=== PATIENT | male | born 1985 | race Caucasian/White ===

== ENCOUNTER 2023-09-29 10:39 | Day surgery (SDC) | payer BC ==
[2023-09-29] MEDS ORDERED: dexmedeTOMIDine HCl 200 MCG/2 ML SDV ONE (11:45)
[2023-09-29] MEDS ORDERED: Lidocaine 2% 5 ML SDV ONE (11:46)
[2023-09-29] MEDS ORDERED: Phenylephrine 1% 10 MG/ML SDV ONE (11:47)
[2023-09-29] MEDS ORDERED: Sodium Chloride 0.9% 100 ML ONE ×2 (11:47→11:58)
[2023-09-29] MEDS ORDERED: Propofol 200 MG/20 ML SDV ONE (11:50)
[2023-09-29] MEDS: Acetaminophen 325 MG Tab PO ONE (12:44)
[2023-09-29] MEDS ORDERED: Ondansetron 4 MG/2 ML SDV IVPUSH ONE (13:00)
== END 2023-09-29 13:10 | disposition home or self-care (01) ==
LOC: JD.SDS 10:39
PROVIDERS: ATTEND Surgery
DX: K52.9 Noninfective gastroenteritis and colitis, unspecified (principal); F17.210 Nicotine dependence, cigarettes, uncomplicated
CPT/HCPCS: 45378; A9270; J2371; J2704; J3490